=== PATIENT | female | born 2000 | race African-American/Black ===

== ENCOUNTER 2018-05-31 14:15 | Emergency (ER) | payer OTHER ==
[~2018-05-31] VITALS: Ht 172.7 cm; Wt 136.8 kg
[2018-05-31 14:18] VITALS: TEMP 36.9; Ht 172.7 cm; Wt 136.8 kg
--- NOTE | 2018-05-31 14:58 | EMERGENCY ROOM VISIT NOTE ---
History Report prepared by Jerry: Jaya Barrientos Under the Supervision of: Dr. Makenna Ann D.O. First contact with patient: 14:34 Chief Complaint: ABDOMINAL PAIN Stated Complaint: ABDOMINAL PAIN History of Present Illness The patient is a 18 year old female who presents to the Emergency Room with complaints of waxing and waning upper abdominal pain that began this morning. Patient states her pain is worse on her left abdomen compared to her right. Patient states the pain radiates to her back "like a band". She describes the pain as "sharp". Patient states her pain is worsened when she lies down. She adds lying down gives her SOB. She denies a history of similar symptoms. Patient adds she had a "cramping" pain yesterday that felt like she was having her menstrual period. Patient states she is 14 weeks and denies any problems with the . She adds this is her 2nd and denies any problems with her 1st . Patient adds she has nausea and states she vomited prior to arrival at the ER. She states her pain caused her to vomit. She states she has not had nausea and vomiting during her 1st trimester. Patient adds she has blurry vision and a headache. She denies a history of vision problems. She adds she has feet swelling which is relieved with elevation. Patient adds she has had intermittent hot flashes with her pain. Past medical history of peptic ulcer disease. Patient denies a history of cardiac problems. She states she still has her gallbladder. She denies a change in eating or medications. She denies taking any medication for her pain. Patient denies cough, colds, vaginal bleeding/discharge, fevers, or chills. Source of History: patient Onset: This morning Position: abdomen (Upper), back Quality: sharp, cramping Timing: waxes/wanes Modifying Factors (Worsening): other (Lying down) Modifying Factors (Relieving): other (None) Associated Symptoms: + headache, + SOB, + nausea, + vomiting, No fevers, No chills, No cough Note: Positive blurry vision. Negative colds or vaginal bleeding/discharge. Review of Systems See HPI for pertinent positives & negatives. A total of 10 systems reviewed and were otherwise negative. Past Medical & Surgical Medical Problems: (1) Peptic ulcer disease (2) Family History Patient reports no known family medical history. Social History Smoking Status: Never Smoker Housing Status: other (Group Home) Current/Historical Medications Scheduled Famotidine (Pepcid), 20 MG PO DAILY Sucralfate (Carafate), 10 ML PO QID Allergies Coded Allergies: No Known Allergies (Unverified , 05/31/18) Physical Exam Vital Signs Date Time Temp Pulse Resp B/P (MAP) Pulse Ox O2 Delivery O2 Flow Rate FiO2 05/31/18 20:13 87 20 131/78 97 05/31/18 19:40 87 131/78 97 Room Air 05/31/18 17:40 80 130/82 99 Room Air 05/31/18 15:49 90 125/78 100 Room Air 05/31/18 14:18 36.9 89 20 136/80 94 Room Air Physical Exam GENERAL: alert, well appearing, well nourished, no distress, non-toxic EYE EXAM: normal conjunctiva, PERRL and EOM's grossly intact OROPHARYNX: no exudate, no erythema, lips, buccal mucosa, and tongue normal and mucous membranes are moist NECK: supple, no nuchal rigidity, no adenopathy, non-tender LUNGS: Clear to auscultation. Normal chest wall mechanics HEART: no murmurs, S1 normal and S2 normal ABDOMEN: Mild epigastric tenderness otherwise abdomen soft, normo-active bowel sounds, no masses, no rebound or guarding. Fundus not palpable. BACK: Back is symmetrical on inspection and there is no deformity, no midline tenderness, no CVA tenderness. SKIN: no rashes and no bruising UPPER EXTREMITIES: upper extremities are grossly normal. FROM, nml pulses. LOWER EXTREMITIES: No pitting edema. FROM, nml pulses. NEURO EXAM: Normal sensorium, cranial nerves II-XII grossly intact, normal speech, no gross weakness of arms, no gross weakness of legs. Medical Decision & Procedures ER Provider Diagnostic Interpretation: Radiology results have been interpreted by the radiologist and reviewed by me. GALLBLADDER-ABD LIMITED HISTORY: 18 years-old Female epigastric pain acute epigastric abdominal pain COMPARISON: None available TECHNIQUE: Multiple real-time sonogram images of the abdominal right upper quadrant were obtained assessing grayscale appearance and color flow FINDINGS: Study is limited secondary to patient body habitus. Visualized pancreas appears unremarkable. Liver is unremarkable without focal mass or intrahepatic biliary ductal dilation. Cholelithiasis without gallbladder wall thickening or pericholecystic fluid. Nonmobile stones seen within the gallbladder fundus. Common bile duct is normal, 3 mm. The right kidney is unremarkable without hydronephrosis. IMPRESSION: 1. Cholelithiasis without sonographic evidence of acute cholecystitis. 2. No biliary ductal dilation. The above report was generated using voice recognition software. It may contain grammatical, syntax or spelling errors. Electronically signed by: Jhonny Monroy M.D. 05/31/2018 3:41 PM Laboratory Results 05/31/18 14:55 Red Blood Count 4.51, Mean Corpuscular Volume 81.4, Mean Corpuscular Hemoglobin 26.8, Mean Corpuscular Hemoglobin Concent 33.0, Mean Platelet Volume 9.0, Neutrophils (%) (Auto) 63.2, Lymphocytes (%) (Auto) 29.7, Monocytes (%) (Auto) 4.6, Eosinophils (%) (Auto) 2.2, Basophils (%) (Auto) 0.1, Neutrophils # (Auto) 5.90, Lymphocytes # (Auto) 2.77, Monocytes # (Auto) 0.43, Eosinophils # (Auto) 0.21, Basophils # (Auto) 0.01 05/31/18 14:55 Test 05/31/18 14:55 05/31/18 15:51 White Blood Count 9.34 K/uL (4.8-10.8) Red Blood Count 4.51 M/uL (4.2-5.4) Hemoglobin 12.1 g/dL (12.0-16.0) Hematocrit 36.7 % (37-47) Mean Corpuscular Volume 81.4 fL (80-100) Mean Corpuscular Hemoglobin 26.8 pg (25-34) Mean Corpuscular Hemoglobin Concent 33.0 g/dl (32-36) Platelet Count 297 K/uL (130-400) Mean Platelet Volume 9.0 fL (7.4-10.4) Neutrophils (%) (Auto) 63.2 % Lymphocytes (%) (Auto) 29.7 % Monocytes (%) (Auto) 4.6 % Eosinophils (%) (Auto) 2.2 % Basophils (%) (Auto) 0.1 % Neutrophils # (Auto) 5.90 K/uL (1.4-6.5) Lymphocytes # (Auto) 2.77 K/uL (1.2-3.4) Monocytes # (Auto) 0.43 K/uL (0.11-0.59) Eosinophils # (Auto) 0.21 K/uL (0-0.5) Basophils # (Auto) 0.01 K/uL (0-0.2) RDW Standard Deviation 46.9 fL (36.4-46.3) RDW Coefficient of Variation 15.6 % (11.5-14.5) Immature Granulocyte % (Auto) 0.2 % Immature Granulocyte # (Auto) 0.02 K/uL (0.00-0.02) Anion Gap 9.0 mmol/L (3-11) Est Creatinine Clear Calc Drug Dose 269.0 ml/min Estimated GFR () > 150.0 Estimated GFR (Non- 140.3 BUN/Creatinine Ratio 4.7 (10-20) Calcium Level 8.9 mg/dl (8.5-10.1) Total Bilirubin 0.3 mg/dl (0.2-1) Aspartate Amino Transf (AST/SGOT) 13 U/L (15-37) Alanine Aminotransferase (ALT/SGPT) 17 U/L (12-78) Alkaline Phosphatase 95 U/L (45-117) Troponin I < 0.015 ng/ml (0-0.045) Total Protein 7.9 gm/dl (6.4-8.2) Albumin 3.6 gm/dl (3.4-5.0) Globulin 4.3 gm/dl (2.5-4.0) Albumin/Globulin Ratio 0.8 (0.9-2) Lipase 60 U/L (73-393) Thyroid Stimulating Hormone (TSH) 0.674 uIu/ml (0.300-4.500) Urine Color YELLOW Urine Appearance CLEAR (CLEAR) Urine pH 6.0 (4.5-7.5) Urine Specific [place] 1.013 (1.000-1.030) Urine Protein NEG (NEG) Urine Glucose (UA) NEG (NEG) Urine Ketones NEG (NEG) Urine Occult Blood NEG (NEG) Urine Nitrite NEG (NEG) Urine Bilirubin NEG (NEG) Urine Urobilinogen NEG (NEG) Urine Leukocyte Esterase NEG (NEG) Laboratory results per my review. Medications Administered Medications (Trade) Dose Ordered Sig/Nico Route Start Time Stop Time Status Last Admin Dose Admin Al Hydroxide/Mg Hydroxide (Maalox Susp) 15 ml NOW STAT PO 05/31/18 16:53 05/31/18 16:55 DC 05/31/18 17:39 15 ML Famotidine (Pepcid Tab) 20 mg NOW ONCE PO 05/31/18 17:00 05/31/18 17:01 DC 05/31/18 17:38 20 MG Acetaminophen (Tylenol Tab) 650 mg NOW STAT PO 05/31/18 16:53 05/31/18 16:55 DC 05/31/18 17:38 650 MG Sucralfate (Carafate Susp) 1 gm NOW STAT PO 05/31/18 18:40 05/31/18 18:42 DC 05/31/18 19:05 1 GM ECG Per My Interpretation Indication: abdominal pain Rate (beats per minute): 80 Rhythm: normal sinus Findings: no acute ischemic change, no ectopy, other (Normal axis/intervals) ED Course 1440: The patient was evaluated in room C9. A complete history and physical exam was performed. 165: I reevaluated the patient. She states she is still experiencing pain. 1653: Tylenol Tab 650mg PO and Maalox Susp 15ml PO 1700: Famotidine 20mg PO 183: I reassessed the pain who states she is still having pain. 1840: Sucralfate 1gm PO 2006: Upon reevaluation, the patient is feeling better. I discussed the findings and the treatment plan with the patient. She verbalizes agreement and understanding. She was discharged to the [facility]. Medical Decision Differential diagnosis: Etiologies such as appendicitis, diverticulitis, PUD, biliary pathology, UTI, pancreatitis, obstruction, mesenteric ischemia, aortic pathology, infections, inflammatory bowel disease, renal colic, as well as others were entertained. Pt well appearing here despite complaints. VS stable throughout. No sx to suggest acute complication with the . Pt labs and imaging here reassuring. Discussed possibly gastritis/GERD, constipation, cholecystitis or biliary colic, or viral illness. I do not suspect ectopic, colitis, cardiac or pulmonary pathology, vascular pathology, sbo, pancreatitis, mesenteric ischemia , bacteremia/sepsis, uti, kidney stones, pyelo. Pt improved with GI meds. Discussed use of acid reducing meds, avoiding acidic foods, f/u in infermery, continuation of care, sx to watch/return for, she verbalized understanding and was agreeable with plan. Medication Reconcilliation Current Medication List: was personally reviewed by me Blood Pressure Screening Patient's blood pressure: Normal blood pressure Blood pressure disposition: Did not require urgent referral Impression Primary Impression: Epigastric pain Additional Impression: Scribe Attestation The scribe's documentation has been prepared under my direction and personally reviewed by me in its entirety. I confirm that the note above accurately reflects all work, treatment, procedures, and medical decision making performed by me. Departure Information Dispostion Home / Self-Care Prescriptions Sucralfate (CARAFATE) 1 Gm/10 Ml [place] 10 ML PO QID, #1 BTL Prov: Makenna Ann, DO 05/31/18 Famotidine (Pepcid) 20 Mg Tab 20 MG PO DAILY, #30 TAB Prov: Makenna Ann, DO 05/31/18 Forms HOME CARE DOCUMENTATION FORM, IMPORTANT VISIT INFORMATION Patient Instructions ED Abdominal Pain Unkn Cause, ED Gallstone W Biliary Colic, ED Gastritis, My [facility], Preg 2nd Trimester Additional Instructions Please continue to monitor the recent symptoms or any changes. Please avoid any acidic foods as that could contribute to stomach irritation which could cause pain. The ultrasound of her gallbladder did show gallstones but no acute gallbladder infection or inflammation. If you have persistent pain you may need a follow-up nuclear study of your gallbladder for further evaluation. If you develop worsening pain, vomiting, fevers or chills, lower abdominal pain, abnormal vaginal discharge or bleeding, dizziness, you have any other new concerns, please return the emergency room. Please continue your routine care, and continue taking your vitamins. Problem Qualifiers Additional Impression: Weeks of gestation: 14 weeks Qualified Codes: Z3A.14 - 14 weeks gestation of
[2018-05-31 15:12] LABS: BASO % 0.1 %; BASO ABS # 0.01 K/uL (0-0.2); EOS % 2.2 %; EOS ABS # 0.21 K/uL (0-0.5); HEMATOCRIT 36.7 % (37-47); HEMOGLOBIN 12.1 g/dL (12.0-16.0); IG# 0.02 K/uL (0.00-0.02); LYMPH % 29.7 %; LYMPH ABS # 2.77 K/uL (1.2-3.4); MEAN CELL VOLUME 81.4 fL (80-100); MEAN CORPUSCULAR HEMOGLOBIN 26.8 pg (25-34); MONO % 4.6 %; MONO ABS # 0.43 K/uL (0.11-0.59); NEUT % 63.2 %; PLATELET COUNT 297 K/uL (130-400); RED CELL DISTRIBUTION WIDTH CV 15.6 % (11.5-14.5); RED CELL DISTRIBUTION WIDTH SD 46.9 fL (36.4-46.3); WHITE BLOOD COUNT 9.34 K/uL (4.8-10.8)
[2018-05-31 15:39] LABS: ALBUMIN 3.6 gm/dl (3.4-5.0); ALKALINE PHOSPHATASE 95 U/L (45-117); ALT/SGPT 17 U/L (12-78); AST/SGOT 13 U/L (15-37); BLOOD UREA NITROGEN 2 mg/dl (7-18); CALCIUM 8.9 mg/dl (8.5-10.1); CARBON DIOXIDE 21 mmol/L (21-32); CREATININE 0.49 mg/dl (0.60-1.20); GLUCOSE 77 mg/dl (70-99); LIPASE 60 U/L (73-393); POTASSIUM 3.6 mmol/L (3.5-5.1); SODIUM 136 mmol/L (136-145); TOTAL PROTEIN 7.9 gm/dl (6.4-8.2)
--- NOTE | 2018-05-31 15:42 | DIAGNOSTIC IMAGING REPORT ---
GALLBLADDER-ABD LIMITED HISTORY: 18 years-old Female epigastric pain acute epigastric abdominal pain COMPARISON: None available TECHNIQUE: Multiple real-time sonogram images of the abdominal right upper quadrant were obtained assessing grayscale appearance and color flow FINDINGS: Study is limited secondary to patient body habitus. Visualized pancreas appears unremarkable. Liver is unremarkable without focal mass or intrahepatic biliary ductal dilation. Cholelithiasis without gallbladder wall thickening or pericholecystic fluid. Nonmobile stones seen within the gallbladder fundus. Common bile duct is normal, 3 mm. The right kidney is unremarkable without hydronephrosis. IMPRESSION: 1. Cholelithiasis without sonographic evidence of acute cholecystitis. 2. No biliary ductal dilation. The above report was generated using voice recognition software. It may contain grammatical, syntax or spelling errors. Electronically signed by: Jhonny Monroy M.D. 05/31/2018 3:41 PM Dictated Date/Time: 05/31/2018 3:39 PM
[2018-05-31] MEDS ORDERED: ACETAMINOPHEN 325 MG TAB PO STA (16:53)
[2018-05-31] MEDS ORDERED: ALUMINUM/MAGNESIUM SUSP 30 ML UDC PO STA (16:53)
[2018-05-31] MEDS ORDERED: FAMOTIDINE 20 MG TAB PO ONE (17:00)
[2018-05-31] MEDS ORDERED: SUCRALFATE 1 GM/10 ML UDC PO STA (18:40)
[2018-05-31] MEDS ORDERED: CRFL PO (20:00)
[2018-05-31] MEDS ORDERED: FAMO20TA11 PO (20:00)
[2018-05-31 20:13] VITALS: BP 131/78; PULSE 87; O2SAT 97
== END 2018-05-31 20:08 | disposition home or self-care (01) ==
LOC: C.EDB 14:16 → C.EDC 20:08
DX: O99.89 Other specified diseases and conditions complicating pregnancy, childbirth and the puerperium (principal); R10.13 Epigastric pain; Z3A.14 14 weeks gestation of pregnancy; M54.9 Dorsalgia, unspecified; R06.02 Shortness of breath